=== PATIENT | male | born 1980 | race African-American/Black ===

== ENCOUNTER 2021-05-13 10:39 | Emergency (ER) | payer MEDICAID ==
[~2021-05-13] VITALS: Ht 172.7 cm; Wt 91.0 kg
[2021-05-13 10:48] VITALS: BP 133/98
[2021-05-13] MEDS ORDERED: IBUPROFEN 800MG TABLET PO ONE (11:45)
[2021-05-13] MEDS ORDERED: IBUP-2028 PO (12:18)
== END 2021-05-13 12:49 | disposition home or self-care (01) ==
LOC: ER 10:39
DX: M25.461 Effusion, right knee (principal); Z88.0 Allergy status to penicillin
CPT/HCPCS: 73560; 99283

== ENCOUNTER 2024-01-01 13:36 | Emergency (ER) | payer MEDICAID ==
[~2024-01-01] VITALS: Ht 172.7 cm; Wt 91.0 kg
[~2024-01-01 13:36] MED LIST: IBUP-2028 PO
[2024-01-01 13:51] VITALS: BP 144/98; PULSE 69; RESP 15; TEMP 98.4; O2SAT 99
[2024-01-01] MEDS ORDERED: IBUP-2029 MT (15:08)
== END 2024-01-01 15:19 | disposition home or self-care (01) ==
LOC: ER 13:36
DX: M25.562 Pain in left knee (principal)
CPT/HCPCS: 99281

== ENCOUNTER 2024-05-27 13:16 | Emergency (ER) | payer MEDICAID, OTHER ==
[~2024-05-27] VITALS: Ht 172.7 cm; Wt 95.2 kg
[~2024-05-27 13:16] MED LIST changes: +IBUP-2029 MT
[2024-05-27 13:18] VITALS: O2SAT 98
[2024-05-27] MEDS ORDERED: KETOROLAC 30MG/ML VIAL IM ONE (15:15)
[2024-05-27] MEDS ORDERED: IBUP-2029 MT (17:32)
[2024-05-27] MEDS: KETOROLAC 30MG/ML VIAL IM NR (18:39)
[2024-05-27] MEDS ORDERED: SODIUM CHLORIDE 0.9% 1,000 ML IV ONE (19:45)
[2024-05-27 22:13] VITALS: BP 132/83; PULSE 94; RESP 16; TEMP 36.72516; O2SAT 100
== END 2024-05-27 22:13 | disposition home or self-care (01) ==
LOC: ER 13:28
DX: M25.561 Pain in right knee (principal); Z88.0 Allergy status to penicillin; W10.9XXA Fall (on) (from) unspecified stairs and steps, initial encounter; Y93.89 Activity, other specified; Y92.89 Other specified places as the place of occurrence of the external cause; Y99.8 Other external cause status
CPT/HCPCS: 99285; 73700; 73562; 96372; J1885; J7030

== ENCOUNTER 2025-06-27 15:10 | Emergency (ER) | payer MEDICAID, OTHER ==
[~2025-06-27] VITALS: Ht 177.8 cm; Wt 91.0 kg
[~2025-06-27 15:10] MED LIST changes: +IBUP-1455 MT; -IBUP-2029 MT
[2025-06-27 15:20] VITALS: O2SAT 98
[2025-06-27] MEDS: KETOROLAC 15MG/ML VIAL IV ONE (16:08)
[2025-06-27 16:55] LABS: BASOPHILS % 1.2 % (0.0-2.0); EOSINOPHILS % 0.8 % (0.0-5.0); HEMATOCRIT. 33.3 % (42.0-52.0); HEMOGLOBIN. 10.8 g/dL (14.0-18.0); LYMPHOCYTES % 21.1 % (20.0-50.0); MEAN PLATELET VOLUME 6.9 fl (7.4-10.4); MONOCYTES % 9.7 % (2.0-8.0); NEUTROPHILS % 67.2 % (40.0-76.0); PLATELET 442 x1000/uL (130-400); RED BLOOD CELL COUNT 4.76 mill/uL (4.7-6.1); RED CELL DISTRIBUTION WIDTH 15.7 % (11.6-14.6)
[2025-06-27 16:57] LABS: ADD RBC MORPHOLOGY YES
[2025-06-27 17:07] LABS: CREATININE 1.2 mg/dL (0.6-1.3)
[2025-06-27 17:08] LABS: UREA NITROGEN BLOOD 12 mg/dL (9-23)
[2025-06-27 17:09] LABS: ASPARTATE AMINOTRANSFERASE 19 IU/L (<34); BILIRUBIN DIRECT < 0.1 mg/dL (<=3.0)
[2025-06-27 17:10] LABS: BILIRUBIN TOTAL 0.4 mg/dL (0.1-1.0); PROTEIN TOTAL 8.7 g/dL (6.0-8.3)
[2025-06-27 17:40] VITALS: TEMP 36.7; O2SAT 99
[2025-06-27 18:00] VITALS: BP 163/100; PULSE 73; RESP 9; TEMP 98.06
[2025-06-27 19:42] LABS: PLATELET ESTIMATE INCREASED
[2025-06-27] MEDS ORDERED: IOHEXOL-300 100 ML BOTTLE ONE (23:32)
== END 2025-06-27 20:34 | disposition left against medical advice (07) ==
LOC: ER 15:10 → EDBEDREQ 20:26 → EDBEDREQTM 20:26 → ER 20:34 → CMPBEDREQ 06-28 08:20
DX: M25.461 Effusion, right knee (principal); M25.561 Pain in right knee; R26.2 Difficulty in walking, not elsewhere classified; Z79.1 Long term (current) use of non-steroidal anti-inflammatories (NSAID); Z88.0 Allergy status to penicillin
CPT/HCPCS: 99285; 96374; 93971; 73700; 80076; 80048; 84550; 85025; 36415; J1885; Q9967